=== PATIENT | male | born 1960 | race Caucasian/White ===

== ENCOUNTER 2017-05-30 14:12 | Emergency (ER) | payer OTHER ==
[2017-05-30] MEDS: traMADol 50 MG TAB PO (15:42)
== END 2017-05-30 15:50 | disposition home or self-care (01) ==
LOC: FTE 14:12
DX: M54.2 Cervicalgia (principal); M25.512 Pain in left shoulder; M25.511 Pain in right shoulder; M54.5 Low back pain; Z87.891 Personal history of nicotine dependence
CPT/HCPCS: 99283; Z7502